=== PATIENT | male | born 1990 | race Caucasian/White ===

== ENCOUNTER 2020-04-29 16:33 | Emergency (ER) | payer MEDICAID ==
[~2020-04-29] VITALS: Ht 177.8 cm; Wt 102.3 kg
[~2020-04-29 16:33] MED LIST: ACET-2119 PO; HYDR-4383 PO; NEOM10DR45 LEFT EAR
[2020-04-29 16:51] VITALS: BP 147/95
[2020-04-29] MEDS ORDERED: LORazepam 1 MG tablet PO ONE (17:15)
[2020-04-29 17:44] LABS: EOSINOPHILS # (AUTO) 0.2 X10'3 (0-0.9); HEMOGLOBIN 16.3 g/dl (14.0-17.9); LYMPHOCYTES # (AUTO) 1.7 X10'3 (1.1-4.8); MEAN PLATELET VOLUME 8.6 FL (7.4-10.4); NEUTROPHILS # (AUTO) 8.3 X10'3 (1.8-7.7); NEUTROPHILS % (AUTO) 72.8 % (42-75); WHITE BLOOD COUNT 11.4 X10'3 (4.5-11.0)
[2020-04-29 17:45] LABS: BASOPHILS # (AUTO) 0.1 X10'3 (0-0.2); EOSINOPHILS % (AUTO) 1.8 % (0-6); HEMATOCRIT 47.5 % (42.0-52.0); LYMPHOCYTES % (AUTO) 14.6 % (21-51); MEAN CORPUSCULAR HEMOGLOBIN 30.5 PG (27.0-31.0); MEAN CORPUSCULAR HGB CONC 34.3 g/dL (33.0-36.5); MONOCYTES # (AUTO) 1.1 X10'3 (0-0.9); MONOCYTES % (AUTO) 9.8 % (2-12); PLATELET COUNT 387 X10'3 (140-440); RED BLOOD COUNT 5.34 X10'6 (4.70-6.10); RED CELL DISTRIBUTION WIDTH 13.3 % (11.5-14.5)
[2020-04-29 18:17] LABS: ALANINE AMINOTRANSFERASE 21 U/L (12-78); ALBUMIN 3.9 G/DL (3.4-5.0); ALKALINE PHOSPHATASE 81 IU/L (46-116); ANION GAP 10 (8-16); ASPARTATE AMINO TRANSFERASE 17 U/L (10-37); BILIRUBIN,TOTAL 0.7 MG/DL (0.1-1.0); BLOOD UREA NITROGEN 6 MG/DL (7-18); BUN/CREATININE RATIO 6.8 (5.4-32.0); CALCIUM 9.4 MG/DL (8.5-10.1); CHLORIDE 105 MMOL/L (99-107); CREATININE 0.88 MG/DL (0.60-1.10); GLUCOSE 114 MG/DL (70-104); POTASSIUM 3.5 MMOL/L (3.5-5.1); SODIUM 141 MMOL/L (135-145); TOTAL CARBON DIOXIDE 26.5 MMOL/L (24-32); TOTAL PROTEIN 7.8 G/DL (6.4-8.2); eGFR > 90 ML/MIN
[2020-04-29 18:31] LABS: ETHANOL < 0.010 GM/DL (0.0-0.010)
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
--- NOTE | 2020-04-29 21:15 | NUR ---
PT INTO BED TO REST . HOB ELEVATED 30 DEGREES PT GIVEN A TURKEY SANDWITCH , HE REPORTED NOT EATING DINNER AND HE IS HUNGREY .
--- NOTE | 2020-04-29 21:20 | NUR ---
AWOKE PATIENT AGAIN FROM HIS SLEEP AND ENCOURAGED PT TO DRINK TO 120 ML GLASSES OF WATER A UA IS NEEDED FOR MEDICAL CLEARNACE
--- NOTE | 2020-04-29 22:30 | NUR ---
PT SLEEPING SUPINE. RESP EVEN AND UNLABORED . IN THE DIRECT LINE OF SIGHT TO NURSING STAFF WILL CONTINUE TO MONITOR AND REASSESS
[2020-04-29] MEDS ORDERED: NO HOME MEDS (22:40)
--- NOTE | 2020-04-29 23:35 | NUR ---
OMA BAKER SIGNED AND FAXED TO PHARMACY
--- NOTE | 2020-04-29 23:38 | NUR ---
PT SLEEPING SUPINE. RESP EVEN AND UNLABORED . IN THE DIRECT LINE OF SIGH TO NURSING STAFF
--- NOTE | 2020-04-30 00:46 | NUR ---
PT SLEEPING PEACFULLY SUPINE . RESP EVEN AND UNLAOBORED WILL CONTINUE TO MONITOR AND REASSES NEEDED PT KNOCKED OVER WATER WAS AUROSABLE BUT WENT RIGHT BACK TO SLEEP
--- NOTE | 2020-04-30 02:00 | NUR ---
PT SLEEPING PEACFULLY ON HER RIGHT SIDE / BLANKETS UP TO HER NOSE ,BUT NOT OVER HER HEAD . RESP EVEN AND UNLABORED WILL CONTINUE TO MONITOR AND REASSESS NEEDED
--- NOTE | 2020-04-30 02:49 | NUR ---
PT SLEEPING SUPINE RESP EVEN AND UNLABORED
--- NOTE | 2020-04-30 04:00 | NUR ---
PT SLEEPING PEACFULLY SUPINE RESP EVEN AND UNLABORED . WILL CONTINUE TO MONIOTR AND REASSESS NEEDED
--- NOTE | 2020-04-30 05:02 | NUR ---
PT UP OUT OF BED TO BATHROOM STEADY GAIT . UA SPECIMAN OBTAINED AND SENT TO LAB
[2020-04-30 05:23] LABS: URINE AMPHETAMINE SCREEN POSITIVE (Neg); URINE BARBITUATE SCREEN NEGATIVE (Neg); URINE BENZODIAZEPINES SCREEN NEGATIVE (Neg); URINE CANNABINOID SCREEN NEGATIVE (Neg); URINE COCAINE SCREEN NEGATIVE (Neg); URINE METHADONE SCREEN NEGATIVE (Neg); URINE OPIATE SCREEN NEGATIVE (Neg); URINE PHENCYCLIDINE SCREEN NEGATIVE (Neg)
[2020-04-30 05:33] LABS: CLARITY,URINE CLEAR (Clear); COLOR,URINE YELLOW (Yellow); GLUCOSE, URINE NEGATIVE (Neg); KETONES,URINE NEGATIVE (Neg); LEUKOCYTE ESTERASE ,URINE NEGATIVE (Neg); NITRITES, URINE NEGATIVE (Neg); OCCULT BLOOD,URINE NEGATIVE (Neg); PROTEIN,URINE NEGATIVE (Neg); UROBILINOGEN,URINE >=8.0 E.U/dL (0.2-1.0)
[2020-04-30 06:00] LABS: UA COLLECTION TYPE CLN CATCH MIDSTREAM
--- NOTE | 2020-04-30 06:00 | NUR ---
PT IS RESTING
--- NOTE | 2020-04-30 07:00 | NUR ---
PT IS SLEEPING. NO ISSUES AT THIS TIME
--- NOTE | 2020-04-30 08:00 | NUR ---
PT IS RESTING
--- NOTE | 2020-04-30 09:00 | NUR ---
PT IS TALKING WITH MENTAL HEALTH.
--- NOTE | 2020-04-30 09:51 | NUR ---
PT IS CALLING HIS SISTER FOR A RIDE HOME
== END 2020-04-30 10:40 | disposition home or self-care (01) ==
LOC: ER 16:34
DX: F24 Shared psychotic disorder (principal); I10 Essential (primary) hypertension; Z86.69 Personal history of other diseases of the nervous system and sense organs; Z90.89 Acquired absence of other organs; Z72.89 Other problems related to lifestyle; Z88.8 Allergy status to other drugs, medicaments and biological substances
CPT/HCPCS: 80053; 80305; 80320; 81003; 84443; 85025; 99283

== ENCOUNTER 2020-05-22 04:39 | Observation (INO) | payer MEDICAID ==
[~2020-05-22] VITALS: Ht 175.3 cm; Wt 110.0 kg
[~2020-05-22 04:39] MED LIST changes: -ACET-2119 PO; -HYDR-4383 PO; -NEOM10DR45 LEFT EAR; +NO HOME MEDS
[2020-05-22] MEDS ORDERED: aspirin 81mg tab.chew PO ONE (05:25)
[2020-05-22] MEDS ORDERED: normal saline 1000ML IV soln IVB ONE (05:25)
[2020-05-22 05:36] LABS: BASOPHILS % (AUTO) 0.3 % (0-1); EOSINOPHILS # (AUTO) 0.3 X10'3 (0-0.9); EOSINOPHILS % (AUTO) 3.2 % (0-6); HEMOGLOBIN 15.3 g/dl (14.0-17.9); LYMPHOCYTES # (AUTO) 2.1 X10'3 (1.1-4.8); LYMPHOCYTES % (AUTO) 21.3 % (21-51); MEAN CORPUSCULAR HEMOGLOBIN 30.5 PG (27.0-31.0); MEAN CORPUSCULAR HGB CONC 34.6 g/dL (33.0-36.5); MEAN CORPUSCULAR VOLUME 87.9 FL (78-98); MEAN PLATELET VOLUME 8.7 FL (7.4-10.4); MONOCYTES # (AUTO) 1.1 X10'3 (0-0.9); MONOCYTES % (AUTO) 10.9 % (2-12); NEUTROPHILS # (AUTO) 6.2 X10'3 (1.8-7.7); NEUTROPHILS % (AUTO) 64.3 % (42-75); PLATELET COUNT 360 X10'3 (140-440); RED BLOOD COUNT 5.01 X10'6 (4.70-6.10); RED CELL DISTRIBUTION WIDTH 13.3 % (11.5-14.5); WHITE BLOOD COUNT 9.7 X10'3 (4.5-11.0)
[2020-05-22 05:42] LABS: PARTIAL THROMBOPLASTIN TIME 31 SECONDS (22-32)
[2020-05-22 05:57] LABS: ALANINE AMINOTRANSFERASE 25 U/L (12-78); ALBUMIN 3.7 G/DL (3.4-5.0); ALBUMIN/GLOBULIN RATIO 1.1 (1.1-1.5); ALKALINE PHOSPHATASE 71 IU/L (46-116); ANION GAP 5 (8-16); ASPARTATE AMINO TRANSFERASE 14 U/L (10-37); BILIRUBIN,TOTAL 0.4 MG/DL (0.1-1.0); BLOOD UREA NITROGEN 8 MG/DL (7-18); BUN/CREATININE RATIO 10.7 (5.4-32.0); CHLORIDE 103 MMOL/L (99-107); CREATININE 0.75 MG/DL (0.60-1.10); GLUCOSE 88 MG/DL (70-104); MAGNESIUM 1.9 MG/DL (1.5-2.4); POTASSIUM 3.9 MMOL/L (3.5-5.1); SODIUM 138 MMOL/L (135-145); TOTAL CARBON DIOXIDE 30.2 MMOL/L (24-32); TOTAL PROTEIN 7.1 G/DL (6.4-8.2); eGFR > 90 ML/MIN
[2020-05-22 06:28] LABS: CLARITY,URINE CLEAR (Clear); COLOR,URINE YELLOW (Yellow); GLUCOSE, URINE NEGATIVE (Neg); KETONES,URINE NEGATIVE (Neg); LEUKOCYTE ESTERASE ,URINE NEGATIVE (Neg); NITRITES, URINE NEGATIVE (Neg); OCCULT BLOOD,URINE NEGATIVE (Neg); PROTEIN,URINE NEGATIVE (Neg)
[2020-05-22 06:32] LABS: UA COLLECTION TYPE CLN CATCH MIDSTREAM
--- NOTE | 2020-05-22 06:32 | NUR ---
ASSUMED CARE OF PATIENT. PATEINT RESTING COMFORTABLE IN BED, EYES CLOSED, RESPIRATIONS EVEN. NO DISTRESS NOTED. PATIENT NSR ON MONITOR.
[2020-05-22 06:37] LABS: URINE AMPHETAMINE SCREEN NEGATIVE (Neg); URINE BARBITUATE SCREEN NEGATIVE (Neg); URINE BENZODIAZEPINES SCREEN NEGATIVE (Neg); URINE CANNABINOID SCREEN NEGATIVE (Neg); URINE COCAINE SCREEN NEGATIVE (Neg); URINE METHADONE SCREEN NEGATIVE (Neg); URINE OPIATE SCREEN POSITIVE (Neg); URINE PHENCYCLIDINE SCREEN NEGATIVE (Neg)
--- NOTE | 2020-05-22 07:40 | NUR ---
[employer] tech at bedside.
[2020-05-22] MEDS ORDERED: mag hydrox/Alum hydrox/simeth 30ml oral suspension PO PRN (08:45)
[2020-05-22] MEDS ORDERED: magnesium hydroxide 30ml (MOM) UD suspension PO PRN (08:45)
[2020-05-22] MEDS ORDERED: nitroGLYCERIN 0.4mg SUBLingual tab SL PRN (08:45)
[2020-05-22] MEDS ORDERED: magnesium 2GM in 50ml NS 50 ML IV PRN (08:45)
[2020-05-22] MEDS ORDERED: acetaminophen 325mg tablet PO PRN ×2 (08:45)
[2020-05-22] MEDS ORDERED: morphine 2 MG/ML inj. syringe IV PRN ×2 (08:45)
[2020-05-22] MEDS ORDERED: LORazepam 1 MG tablet PO PRN (08:45)
[2020-05-22] MEDS ORDERED: magnesium 4gm in 100ml NS 100 ML IV PRN (08:45)
[2020-05-22] MEDS ORDERED: metoclopramide 5 mg/ml inj IV PRN (08:45)
[2020-05-22] MEDS ORDERED: potassium Cl 20 mEq SR tablet PO PRN ×2 (08:45)
[2020-05-22] MEDS ORDERED: ondansetron/PF 4mg/2ml inj IV PRN (08:45)
[2020-05-22] MEDS ORDERED: potassium CL 10mEq/100ml bag 100 ML IV PRN ×2 (08:45)
[2020-05-22] MEDS ORDERED: magnesium Cl slow-release 64mg tablet PO PRN (08:45)
[2020-05-22] MEDS ORDERED: normal saline 1000ml 1,000 ML IV SCH (08:45)
[2020-05-22 10:32] VITALS: BP 131/88
[2020-05-22 11:00] VITALS: BP 123/78
[2020-05-22 15:00] VITALS: BP 112/71
--- NOTE | 2020-05-22 16:24 | NUR ---
Student documentation: I have reviewed and agree with all interventions, assessments performed and documented by AMARA Simms. Addendum: 05/22/20 at 1826 by Oanh Mcmanus RN PHYLICIA Simms
--- NOTE | 2020-05-22 17:25 | NUR ---
PAGER ID: [phone] MESSAGE: 311. pt. Nicholas. RENATO Olsen pt. 12 lead EKG showed normal sinus rhythm. thank you. Lillie [phone]
--- NOTE | 2020-05-22 18:50 | NUR ---
Problems reprioritized. Patient report given, questions answered & plan of care reviewed with AMARA Zarate.
--- NOTE | 2020-05-22 18:50 | NUR ---
Patient in room MED 311. I have received report from LUI MALONEY and had the opportunity to ask questions and assume patient care.
--- NOTE | 2020-05-22 19:15 | NUR ---
PT DISCHARGED WITH ALL BELONGING, IV OUT, DELIVERED TO HIS RIDE IN FRONT. Addendum: 05/22/20 at 1934 by Loretta Murphy RN PT DISCHARGED IN STABLE CONDITION.
[2020-05-22] MEDS ORDERED: K and/or MAG REPLACEMENT MC SCH (20:00)
[2020-05-22] MEDS ORDERED: temazepam 15mg capsule PO PRN (21:00)
[2020-05-23] MEDS ORDERED: enoxaparin 40mg/0.4ml syringe SUBCUT SCH (08:00)
[2020-05-23] MEDS ORDERED: aspirin 81mg tablet.DR PO SCH (08:30)
== END 2020-05-22 19:17 | disposition home or self-care (01) ==
LOC: ER 04:39 → ED HOLD 08:45 → MED 3N 10:20
PROVIDERS: ADMIT Family Medicine; ATTEND Family Medicine
DX: R07.89 Other chest pain (principal); I20.9 Angina pectoris, unspecified; R94.31 Abnormal electrocardiogram [ECG] [EKG]; F41.0 Panic disorder [episodic paroxysmal anxiety]; G47.33 Obstructive sleep apnea (adult) (pediatric); I10 Essential (primary) hypertension; F32.9 Major depressive disorder, single episode, unspecified; F15.10 Other stimulant abuse, uncomplicated; Z90.49 Acquired absence of other specified parts of digestive tract; Z98.84 Bariatric surgery status; Z79.899 Other long term (current) drug therapy
CPT/HCPCS: 36415; 71045; 80053; 80305; 81003; 83735; 83880; 84443; 84484; 85025; 85610; 85730; 87081; 93005; 93306; 96360; 96361; 99285; G0378; J7030

== ENCOUNTER 2020-08-13 23:25 | Emergency (ER) | payer MEDICAID ==
[~2020-08-13] VITALS: Ht 167.6 cm; Wt 90.9 kg
[2020-08-13] MEDS ORDERED: LORazepam 2 mg/ml vial IM ONE (23:30)
[2020-08-13] MEDS ORDERED: haloperidol lactate 5mg/ml inj IM ONE (23:30)
[2020-08-13] MEDS ORDERED: diphenhydrAMINE 50 mg/ml inj IM ONE (23:30)
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
--- NOTE | 2020-08-13 23:34 | NUR ---
mother number katya is [phone]
--- NOTE | 2020-08-13 23:52 | NUR ---
GETING READY TO ADMINISTER MEDICAITONS, PT STATES HE IS ALLERGIC TO ANTIHISTIMINES. PER EDMD DAVID, DO NOT GIVE BENADRYL. ORDER COMPLETED AND BENADRYL NON ADMINISTERED
[2020-08-13 23:54] LABS: BASOPHILS # (AUTO) 0.2 X10'3 (0-0.2); BASOPHILS % (AUTO) 1.2 % (0-1); EOSINOPHILS # (AUTO) 0.4 X10'3 (0-0.9); HEMATOCRIT 46.9 % (42.0-52.0); HEMOGLOBIN 15.6 g/dl (14.0-17.9); LYMPHOCYTES # (AUTO) 5.1 X10'3 (1.1-4.8); LYMPHOCYTES % (AUTO) 29.3 % (21-51); MEAN CORPUSCULAR HEMOGLOBIN 30.5 PG (27.0-31.0); MEAN CORPUSCULAR HGB CONC 33.2 g/dL (33.0-36.5); MEAN CORPUSCULAR VOLUME 91.8 FL (78-98); MEAN PLATELET VOLUME 9.7 FL (7.4-10.4); MONOCYTES # (AUTO) 1.9 X10'3 (0-0.9); NEUTROPHILS # (AUTO) 9.8 X10'3 (1.8-7.7); NEUTROPHILS % (AUTO) 56.5 % (42-75); PLATELET COUNT 453 X10'3 (140-440); RED CELL DISTRIBUTION WIDTH 13.4 % (11.5-14.5); WHITE BLOOD COUNT 17.4 X10'3 (4.5-11.0)
[2020-08-14 00:01] LABS: CLARITY,URINE CLOUDY (Clear); COLOR,URINE YELLOW (Yellow); GLUCOSE, URINE NEGATIVE (Neg); KETONES,URINE TRACE mg/dl (Neg); LEUKOCYTE ESTERASE ,URINE NEGATIVE (Neg); NITRITES, URINE NEGATIVE (Neg); OCCULT BLOOD,URINE NEGATIVE (Neg); PROTEIN,URINE 100 mg/dl (Neg)
[2020-08-14 00:08] LABS: ALBUMIN 4.1 G/DL (3.4-5.0); ALBUMIN/GLOBULIN RATIO 1.1 (1.1-1.5); ALKALINE PHOSPHATASE 93 IU/L (46-116); ANION GAP 31 (8-16); ASPARTATE AMINO TRANSFERASE 26 U/L (10-37); BILIRUBIN,TOTAL 0.4 MG/DL (0.1-1.0); BLOOD UREA NITROGEN 10 MG/DL (7-18); BUN/CREATININE RATIO 5.4 (5.4-32.0); CALCIUM 9.1 MG/DL (8.5-10.1); CHLORIDE 100 MMOL/L (99-107); CREATININE 1.84 MG/DL (0.60-1.10); ETHANOL < 0.010 GM/DL (0.0-0.010); GLUCOSE 377 MG/DL (70-104); POTASSIUM 3.2 MMOL/L (3.5-5.1); SODIUM 139 MMOL/L (135-145); TOTAL PROTEIN 7.8 G/DL (6.4-8.2); eGFR 43 ML/MIN
[2020-08-14 00:10] LABS: URINE AMPHETAMINE SCREEN POSITIVE (Neg); URINE BARBITUATE SCREEN NEGATIVE (Neg); URINE BENZODIAZEPINES SCREEN NEGATIVE (Neg); URINE CANNABINOID SCREEN POSITIVE (Neg); URINE COCAINE SCREEN NEGATIVE (Neg); URINE METHADONE SCREEN NEGATIVE (Neg); URINE OPIATE SCREEN NEGATIVE (Neg); URINE PHENCYCLIDINE SCREEN NEGATIVE (Neg)
[2020-08-14 00:11] LABS: UA COLLECTION TYPE VOIDED
[2020-08-14 00:12] LABS: BACTERIA,URINE 1+ /HPF (Neg); RBC,URINE NONE SEEN /HPF (0-2); SQUAMOUS EPITHELIAL CELL,UR FEW /LPF (FEW); WBC,URINE 0-4 /HPF (0-4)
[2020-08-14 00:13] LABS: TOTAL CARBON DIOXIDE 8.2 MMOL/L (24-32)
[2020-08-14] MEDS ORDERED: normal saline 1000ML IV soln IVB ONE (00:15)
--- NOTE | 2020-08-14 00:20 | NUR ---
PT STATES HE ONLY TOOK METH IV AND NOT THE OTHERS STATED PREVIOUSLY. PT DENIES TRYING TO HURT HIMSELF. "i WAS JUST BEING STUPID"
[2020-08-14 00:22] LABS: SPERM MODERATE /HPF (NEGATIVE)
[2020-08-14] MEDS ORDERED: dicyclomine 10mg/ml 2ml ampule IM ONE (00:40)
[2020-08-14 00:56] LABS: ABG BASE EXCESS -2.7 mmol/L (-2.0-2.0); ABG HCO3 21.6 mmol/L (22.0-26.0); ABG OXYGEN SATURATION 95.3 % (94-97); ABG PCO2 (T) 36.2 mmHg (35.0-48.0); ABG PO2 (T) 79.4 mmHg (75.0-100.0); ALLEN'S TEST POSITIVE; FCOHb 0.2 % (0.0-3.9); FMetHb 0.3 % (0.0-1.5); FO2Hb 94.8 % (94-97); PATIENT TEMPERATURE 36.9; TOTAL HEMOGLOBIN 15.4 G/dl (14.0-18.0)
[2020-08-14 01:28] LABS: ALANINE AMINOTRANSFERASE 28 U/L (12-78)
[2020-08-14 02:25] LABS: ALBUMIN 3.4 G/DL (3.4-5.0); ANION GAP 7 (8-16); BLOOD UREA NITROGEN 8 MG/DL (7-18); BUN/CREATININE RATIO 8.2 (5.4-32.0); CALCIUM 7.9 MG/DL (8.5-10.1); CHLORIDE 110 MMOL/L (99-107); CREATININE 0.97 MG/DL (0.60-1.10); GLUCOSE 61 MG/DL (70-104); POTASSIUM 3.2 MMOL/L (3.5-5.1); SODIUM 142 MMOL/L (135-145); TOTAL CARBON DIOXIDE 24.9 MMOL/L (24-32); eGFR 90 ML/MIN
[2020-08-14] MEDS ORDERED: potassium Cl 20 mEq SR tablet PO STA (02:36)
--- NOTE | 2020-08-14 03:07 | NUR ---
GAVE APPLE JUICE FOR BG 61
--- NOTE | 2020-08-14 06:30 | NUR ---
Pt sleeping. Respirations unlabored. NAD.
--- NOTE | 2020-08-14 07:30 | NUR ---
Pt sleeping. Respirations unlabored. NAD
--- NOTE | 2020-08-14 08:01 | NUR ---
Pt's sister Lisbeth's number [phone], .
--- NOTE | 2020-08-14 08:30 | NUR ---
Pt sleeping. Respirations unlabored. NAD.
[2020-08-14 09:26] VITALS: BP 125/85
--- NOTE | 2020-08-14 09:30 | NUR ---
Pt ate breakfast. Pt denies any further needs at this time.
--- NOTE | 2020-08-14 10:30 | NUR ---
Pt sleeping. Respirations unlabored. NAD.
--- NOTE | 2020-08-14 11:23 | NUR ---
Pt sleeping. Respirations unlabored. NAD.
--- NOTE | 2020-08-14 11:57 | NUR ---
Pt ambulated to the restroom and back to bed without any difficulty.
--- NOTE | 2020-08-14 12:30 | NUR ---
Pt walked over from ER main to bed 24 accompanied by PCT.
--- NOTE | 2020-08-14 14:10 | NUR ---
Pt is lying in bed on his back, appears to be sleeping.
--- NOTE | 2020-08-14 15:48 | NUR ---
Pt was evaluated by [facility] and does not meet hold criteria.
--- NOTE | 2020-08-14 17:48 | NUR ---
Pt is being discharged, he is waiting for his mom to pick him up.
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
== END 2020-08-14 18:05 | disposition home or self-care (01) ==
LOC: ER 23:25
DX: F23 Brief psychotic disorder (principal); F19.10 Other psychoactive substance abuse, uncomplicated; E87.6 Hypokalemia; I10 Essential (primary) hypertension; E11.9 Type 2 diabetes mellitus without complications; F15.90 Other stimulant use, unspecified, uncomplicated; F14.90 Cocaine use, unspecified, uncomplicated; Z86.69 Personal history of other diseases of the nervous system and sense organs; Z90.89 Acquired absence of other organs; Z72.89 Other problems related to lifestyle; Z98.890 Other specified postprocedural states; Z88.8 Allergy status to other drugs, medicaments and biological substances
CPT/HCPCS: 36415; 36600; 80048; 80053; 80305; 80320; 81001; 82803; 82948; 85018; 85025; 96360; 96361; 96372; 99285; J1630; J2060; J7030; 81003

== ENCOUNTER 2021-05-17 01:48 | Emergency (ER) | payer MEDICAID ==
[~2021-05-17] VITALS: Ht 175.3 cm; Wt 113.6 kg
[2021-05-17 01:51] VITALS: BP 167/112
[2021-05-17] MEDS ORDERED: CefTRIAXone 250MG IM Kit w/LIDOcaine IM ONE (02:10)
[2021-05-17] MEDS ORDERED: azithromycin 250mg tablet PO ONE (02:10)
[2021-05-17] MEDS ORDERED: metroNIDAZOLE 500mg tablet PO ONE (02:10)
[2021-05-17] MEDS ORDERED: valacyclovir 500mg tablet PO SCH (02:10)
[2021-05-17] MEDS ORDERED: CefTRIAXone 1000mg IM Kit (w/lidocaine diluent) IM ONE (02:15)
[2021-05-17] MEDS ORDERED: VALA10002 PO (02:23)
[2021-05-17] MEDS ORDERED: phenazopyridine 100mg tablet PO ONE (02:40)
[2021-05-17] MEDS ORDERED: PHEN-716 PO (03:24)
[2021-05-17 04:18] LABS: CLARITY,URINE CLOUDY (Clear); COLOR,URINE YELLOW (Yellow); PROTEIN,URINE TRACE mg/dl (Neg); UA COLLECTION TYPE VOIDED
[2021-05-17 04:19] LABS: GLUCOSE, URINE NEGATIVE (Neg); KETONES,URINE 15 mg/dl (Neg); LEUKOCYTE ESTERASE ,URINE NEGATIVE (Neg); NITRITES, URINE NEGATIVE (Neg); OCCULT BLOOD,URINE NEGATIVE (Neg)
[2021-05-17 04:24] LABS: AMORPHOUS URATES 4+; BACTERIA,URINE NONE SEEN /HPF (Neg); CAL OXALATE CRYSTALS 4+ /HPF (NEGATIVE); RBC,URINE NONE SEEN /HPF (0-2); SQUAMOUS EPITHELIAL CELL,UR FEW /LPF (FEW); WBC,URINE 0-4 /HPF (0-4)
== END 2021-05-17 04:57 | disposition home or self-care (01) ==
LOC: ER 01:49
DX: B00.9 Herpesviral infection, unspecified (principal); R30.0 Dysuria; G40.909 Epilepsy, unspecified, not intractable, without status epilepticus; I10 Essential (primary) hypertension; E11.9 Type 2 diabetes mellitus without complications; G47.39 Other sleep apnea; F15.90 Other stimulant use, unspecified, uncomplicated; Z90.49 Acquired absence of other specified parts of digestive tract; Z90.89 Acquired absence of other organs; Z79.899 Other long term (current) drug therapy; Z88.8 Allergy status to other drugs, medicaments and biological substances
CPT/HCPCS: 36415; 81001; 87491; 87591; 96372; 99284; J0696; J3490